=== PATIENT | female | born 1960 ===

== ENCOUNTER 2019-12-13 11:26 | Inpatient (IN) | payer OTHER ==
[~2019-12-13] VITALS: Ht 165.1 cm; Wt 64.7 kg
[~2019-12-13 11:26] MED LIST: GABA400; HYDACE5325 PO; META800 PO; NAPR500 PO; OXYACE5T PO; PANT20 PO; RXOXYACE PO
[2019-12-13 12:45] LABS: BASOPHILS ABSOLUTE AUTO 0.03 K/mm3 (0.00-0.23); BASOPHILS PERCENT AUTO 1 % (0-2); EOSINOPHILS ABSOLUTE AUTO 0.05 K/mm3 (0.00-0.68); EOSINOPHILS PERCENT AUTO 1 % (0-6); Hematocrit 26.3 % (33.0-51.0); Hemoglobin 6.9 g/dL (11.5-16.0); IMMATURE GRAN ABSOLUTE AUTO 0.01 K/mm3 (0.00-0.10); IMMATURE GRAN PERCENT AUTO 0 % (0-1); LYMPHOCYTES ABSOLUTE AUTO 0.73 K/mm3 (0.84-5.20); LYMPHOCYTES PERCENT AUTO 17 % (21-46); MONOCYTES ABSOLUTE AUTO 0.33 K/mm3 (0.16-1.47); MONOCYTES PERCENT AUTO 8 % (4-13); Mean Corpuscular HGB 15.3 pg (26.0-34.0); Mean Corpuscular HGB Conc 26.2 g/dL (31.5-36.5); Mean Corpuscular Volume 58 fL (80-100); Mean Platelet Volume 8.5 fL (9.1-12.4); NEUTROPHILS ABSOLUTE AUTO 3.07 K/mm3 (1.96-9.15); NEUTROPHILS PERCENT AUTO 73 % (41-73); NRBC ABSOLUTE 0.03 K/mm3 (0.00-0.02); NRBC Auto 0.7 /100 WBC (0.0-0.2); Platelet Count 434 K/mm3 (150-400); RDW Coefficient Variation 20.7 % (11.7-14.2); RDW Standard Deviation 41.5 fL (35.1-46.3); White Blood Cell Count 4.22 K/mm3 (4.00-11.30)
[2019-12-13 13:04] LABS: Albumin, Blood 3.7 g/dL (3.4-5.0); Albumin/Globulin Ratio 1.1 (0.8-1.8); Alk Phos 66 U/L (50-136); Anion Gap 8 mmol/L (6-16); Aspartate Aminotrans (AST/SGOT 13 U/L (12-37); Blood Urea Nitrogen 15 mg/dL (8-24); Bun/Creatinine Ratio 18.9 (12.0-20.0); CO2, Blood 22 mmol/L (21-32); Calcium, Blood 8.7 mg/dL (8.5-10.1); Chloride, Blood 110 mmol/L (98-108); Creatinine, Blood 0.79 mg/dL (0.40-1.00); Globulin, Blood 3.3 g/dL (2.2-4.0); Glomerular Filtration Rate >60 (60-); Glucose, Blood 98 mg/dL (70-99); Potassium, Blood 3.5 mmol/L (3.5-5.5); Sodium, Blood 140 mmol/L (136-145)
[2019-12-13 13:07] LABS: Troponin I <0.015 ng/mL (0.000-0.040)
[2019-12-13 13:15] LABS: Bilirubin, Total 0.3 mg/dL (0.1-1.0)
[2019-12-13 13:25] LABS: Alanine Aminotransfer (ALT/SGP 18 U/L (12-78)
[2019-12-13] MEDS ORDERED: TRAZ100 PO (15:55)
[2019-12-13] MEDS ORDERED: LEVSOD75 PO (15:56)
[2019-12-13 16:01] LABS: Hematocrit 24.7 % (33.0-51.0); Hemoglobin 6.4 g/dL (11.5-16.0)
[2019-12-13] MEDS ORDERED: QUET200 PO ×2 (16:02→16:03)
[2019-12-13] MEDS ORDERED: Lovastatin20 MG PO (16:04)
[2019-12-13 16:44] LABS: Thyroid Stimulating Hormone 1.64 uIU/mL (0.360-4.800)
--- NOTE | 2019-12-13 20:30 | NUR ---
PT ARRIVED TO ROOM FROM ER VIA STRETCHER. TXFR TO BED VIA SLIDER SHEET AND ASSIST X4. PT CHEERFUL AND VERY TALKATIVE. TOPICS OF CONVERSATION ALL OVER THE PLACE WITH NO BREAKS IN BETWEEN. FLUID FROM ONE THOUGHT TO THE NEXT. SOME THOUGHTS TRIGGER TEARS, OTHERS TRIGGER LAUGHTER. COOPERATIVE AND PLEASANT. FEARFUL OF DEMONS OR SATAN KEEPING HER FROM USING THE CALL LIGHT, REQUESTS THAT SOMEONE REMAIN WITH HER AT ALL TIMES TO KEEP HER SAFE. ASKS FOR BIBLE TO PLACE ON CHEST TO PROTECT HER HEART FROM SATAN MESSING WITH IT AND PREVENTING US FROM SEEING ANY CHANGES IN RHYTHM OR RATE ON THE MONITOR. PT DENIES ANY PLAN OR IDEAS TO HARM SELF OR OTHERS. VERY THANKFUL TO HAVE US HERE TO WATCH OVER HER. REQUESTS A VARIETY OF SNACKS. CALL LIGHT IN REACH.
[2019-12-13 20:39] LABS: Hematocrit 28.1 % (33.0-51.0); Hemoglobin 7.7 g/dL (11.5-16.0)
--- NOTE | 2019-12-13 22:30 | NUR ---
PT WATCHING TV. PREFERS VOLUME VERY LOUD. FLU SHOT GIVEN. PT RELUCTANLY TOOK MEDS. IS NOW SETTLING DOWN TO SLEEP. APPLIES CHAP STICK TO LIPS AND AROUND EYES. REQUESTED AND PLACED SHOWER CAP OVER HAIR. WARM BLANKET PROVIDED. PT FELL ASLEEP QUICKLY AND WAS NOTED TO HAVE BEEN LAUGHING IN HER SLEEP FOR QUITE SOME TIME, AND TALKING. DID NOT RESPOND WHEN ASKED IF SHE WAS OK. JUST KEPT LAUGHING. LIGHTS ON REQUESTED. DOORS OPEN. TV ON. CALL LIGHT IN REACH. BIBLE REMAINS ACROSS CHEST.
[2019-12-14 02:30] LABS: BASOPHILS ABSOLUTE AUTO 0.04 K/mm3 (0.00-0.23); BASOPHILS PERCENT AUTO 1 % (0-2); EOSINOPHILS ABSOLUTE AUTO 0.06 K/mm3 (0.00-0.68); EOSINOPHILS PERCENT AUTO 2 % (0-6); Hematocrit 29.1 % (33.0-51.0); IMMATURE GRAN PERCENT AUTO 0 % (0-1); LYMPHOCYTES ABSOLUTE AUTO 0.95 K/mm3 (0.84-5.20); LYMPHOCYTES PERCENT AUTO 23 % (21-46); MONOCYTES PERCENT AUTO 10 % (4-13); Mean Corpuscular HGB 16.6 pg (26.0-34.0); Mean Corpuscular HGB Conc 27.5 g/dL (31.5-36.5); Mean Corpuscular Volume 60 fL (80-100); Mean Platelet Volume 8.5 fL (9.1-12.4); NEUTROPHILS ABSOLUTE AUTO 2.68 K/mm3 (1.96-9.15); NEUTROPHILS PERCENT AUTO 65 % (41-73); Platelet Count 390 K/mm3 (150-400); RDW Coefficient Variation 22.3 % (11.7-14.2); RDW Standard Deviation 45.7 fL (35.1-46.3); Red Blood Cell Count 4.83 M/mm3 (3.80-5.20); White Blood Cell Count 4.13 K/mm3 (4.00-11.30)
[2019-12-14 02:49] LABS: Alanine Aminotransfer (ALT/SGP 16 U/L (12-78); Albumin, Blood 3.2 g/dL (3.4-5.0); Alk Phos 58 U/L (50-136); Anion Gap 7 mmol/L (6-16); Aspartate Aminotrans (AST/SGOT 9 U/L (12-37); Bilirubin, Total 0.5 mg/dL (0.1-1.0); Blood Urea Nitrogen 16 mg/dL (8-24); Bun/Creatinine Ratio 23.2 (12.0-20.0); CO2, Blood 23 mmol/L (21-32); Calcium, Blood 8.5 mg/dL (8.5-10.1); Chloride, Blood 112 mmol/L (98-108); Creatinine, Blood 0.69 mg/dL (0.40-1.00); Globulin, Blood 3.2 g/dL (2.2-4.0); Glomerular Filtration Rate >60 (60-); Glucose, Blood 101 mg/dL (70-99); Potassium, Blood 3.3 mmol/L (3.5-5.5); Sodium, Blood 142 mmol/L (136-145); Total Protein, Blood 6.4 g/dL (6.4-8.2)
--- NOTE | 2019-12-14 06:11 | NUR ---
SHIFT SUMMARY NO SIG CHANGES SINCE RECEIVING MEDS AND GOING TO SLEEP. PT SLEPT THROUGH THE NIGHT, SLEPT THROUGH 04 VS. BOTH CONSULT DOCTORS NOTIFIED. PT HAD NO DIET ORDER ON ARRIVAL AND CLEAR LIQ ORDERED FOR THIS AM. PT WAS GIVEN TURKEY SANDWICH, JELLO, ICE CREAM AT 2200. NOTHING TO EAT OR DRINK SINCE. WILL CONTINUE TO MONITOR, DOCUMENT CHANGES AND WILL REPORT TO DAYSHIFT RN. CALL LIGHT IN REACH.
--- NOTE | 2019-12-14 10:28 | NUR ---
AM NOTE... ASSUMED CARE OF PT APROX 0700. PT IS A&Ox4 BUT HAS HX OF SCHIZ AND MENTAL HEALTH ISSUES. PT'S VS STABLE AT THIS TIME. PT DENIES CHEST PAIN/PRESSURE N/V OR SOB. PT DENIES BLACK/TARRY STOOLS. PT IS ANXIOUS AT THIS TIME. L/S CLEAR. BT PRESENT AND HYPOACTIVE. ABD IS SOFT AND NONTENDER TO PALP. CALL LIGHT IN REACH WILL CONTINUE TO MONITOR.
--- NOTE | 2019-12-14 12:48 | NUR ---
Patient is lying in bed and alert. Patient's thoughts are all over the place and helping her stay on topic is like hearding cats but she is very pleasant and does have wonderful things to say. We talk about personal issues, about her spiritual journey and about her and family history. I listen empathically, conduct a life review, reinforce helpful attitudes and practices and provide spiritual guidance, grief support and prayer. Patient responds well and shows evidence of improved hope. I will continue to remain available to patient and family.
[2019-12-14 13:24] LABS: Hematocrit 28.7 % (33.0-51.0); Hemoglobin 7.7 g/dL (11.5-16.0)
--- NOTE | 2019-12-14 19:04 | NUR ---
SHIFT SUMMARY... NO ACUTE NEGATIVE CHANGES NOTED THIS SHIFT. PT'S VS HAVE BEEN STABLE. PT DENIES ANY BLACK/TARRY STOOLS. PT HAS BEEN IND THE ROOM. CALL LIGHT IN REACH WILL CONTINUE TO MONITOR UNTIL REPORT IS GIVEN TO ONCOMING RN.
--- NOTE | 2019-12-15 04:57 | NUR ---
EOS: PATIENT WAS UP AND DOWN THRU THE NOC SHIFT; SHE WAWS VERY PLEASANT AND COOPERATIVE THOUGH SHE WAS CONFUSED AT TIMES, TALKING ABOUT DEMONS BY THE DOOR. I ADJUSTED THE DOORS TO HER SATISFACTION SEVERAL TIMES. SHE HAD NO COMPLAINTS OF PAIN, RECEVD MEDS PER EMAR. SHIFT ASSESSMENTS AND HOURLY ROUNDS WERE COMPLETED. SHE REMAINS VITALLY STABLE AT THIS ITME, THOUGH FUSTRATED BY THE IV PUMP. BED LOW AND LOCKED, CALL BEE WITHIN REACH.
[2019-12-15 08:08] LABS: Hematocrit 26.8 % (33.0-51.0); Hemoglobin 7.1 g/dL (11.5-16.0)
[2019-12-15 13:33] LABS: Hematocrit 27.7 % (33.0-51.0); Hemoglobin 7.3 g/dL (11.5-16.0)
--- NOTE | 2019-12-15 16:56 | NUR ---
History, Chart, Medications and Allergies reviewed before start of procedure. Lungs clear T/O to Auscultation. Patient confirms NPO status and agrees with scheduled surgery. Pre-Op teaching done. Pt verbalizes understanding. Pt very talkative, pleasant. Easily redirected. Dr. Jackson/Gareth here for 2 physician consent for procedure.
--- NOTE | 2019-12-15 17:22 | NUR ---
12/15/19 1722 Elvis Bradford History, Chart, Medications and Allergies reviewed before start of procedure.MONITOR INTACT WITH CONTINUOUS PULSE OXIMETRY AND INTERMITTENT BP.3-LEAD EKG REVIEWED WITH PHYSICIAN PRIOR TO START OF PROCEDURE.O2 VIA N/C INTACT THROUGHOUT SEDATION/PROCEDURE. PATIENT DETERMINED TO BE ASA APPROPRIATE FOR PROPOFOL SEDATION PRIOR TO START OF PROCEDURE BY DR. CAMARGO.
--- NOTE | 2019-12-15 19:34 | NUR ---
PCU DAYSHIFT NOTE PATIENT ALERT AND ORIENTED TO SELF AND LOCATION T/O SHIFT. PATIENT COOPERATIVE WITH CARE. RESP E/U ON ROOM AIR. HEART RATE 70-80'S NSR WITH NO CARDIAC EVENTS. PATIENT LEFT AND ERTURNED FROM EDG - MD CAMARGO TO ROOM TO UPDATE ON FINDINGS. PATIENT VERBALIZED UNDERSTANDING AND PLAN OF CARE. VSS T/O SHIFT. REPORT GIVEN TO NOC SHIFT HIREN ALVARADO WITH 'O' ANTIONE. CALL LIGHT W/I REACH.
--- NOTE | 2019-12-15 19:40 | NUR ---
RECEIVED REPORT FROM HIREN GORDON. ASSUMED CARE OF PT. SITTING UP IN BED EATING DINNER AT THIS TIME, NO S/S ACUTE DISTRESS NOTED. PT TALKATIVE, APPROPRIATE WITH RN. DENIES ANY NEEDS AT THIS TIME. CALL LIGHT AND POSSESSIONS IN REACH, WILL CONTINUE TO MONITOR.
[2019-12-15 20:11] LABS: Hematocrit 30.6 % (33.0-51.0)
--- NOTE | 2019-12-16 01:00 | NUR ---
UPDATE PATIENT WOKE UP VERY AGITATED AND KEPT PULLING AT HER GOWN AND BLANKETS. PATIENT FRUSTRATED BUT UNABLE TO FINISH HER SENTENCES TO EXPLAIN TO STAFF WHAT WAS BOTHERING HER. PATIENT WOULD ALSO YELL THINGS SUCH , "TURN OFF MY LIGHT!" AND THEN WHEN STAFF TURNED OFF THE LIGHT REQUESTED SHE WOULD YELL, "WHO TURNED OFF MY LIGHT, WHY WOULD SOMEONE DO THAT. EVERYTHINGS ALL WRONG." PATIENT THEN SUDDENLY START TO CRY STATING HOW SORRY SHE WAS THAT SHE HAD GOTTEN FRUSTRATED. A FEW MINUTES LATER PATIENT WOULD GET FRUSTARTED AND START YELLING AGAIN. PATIENT EVENTUALLY ABLE TO SETTLE DOWN AND APPEARED TO FALL ASLEEP. WILL CONTINUE TO MONITOR.
[2019-12-16 06:03] LABS: Hemoglobin 7.7 g/dL (11.5-16.0)
--- NOTE | 2019-12-16 07:59 | NUR ---
PT RESTING IN BED COMFORTABLY, IN NO ACUTE DISTRESS. SLEPT T/O NIGHT. WAS MONITORED EVERY 1-2 HOURS WITH NEEDS MET. PT REMAINS ANXIOUS WITH LABILE MOOD AT TIMES, PLEASANT AND COOPERATIVE AT THIS TIME. DENIES ANY NEEDS, CALL LIGHT AND POSSESSIONS IN REACH.
[2019-12-16] MEDS ORDERED: OMEP20ER PO (10:38)
--- NOTE | 2019-12-16 11:51 | NUR ---
PCU DISCHARGE SUMMARY PATIENT ALERT AND ORIENTED TO SELF, LOCATION AND SITUATION. PATIENT VERBALIZED UNDERSTANDING OF DISCHARGE INSTRUCTION. LUNCHROOM OPERATOR DISCUSSED DISCHARGE PLAN WITH FAMILY MEMBERS AND GUARDIANSHIP WITH FAMILY MEMBERS. PATIENTS LEFT UNIT VIA AMBULATION WITH HER COUSIN HOME, WHICH IS ALSO [employer].
== END 2019-12-16 11:13 | disposition home or self-care (01) | DRG 812 ==
LOC: ER 11:26 → PCU 19:33
PROVIDERS: Emergency Medicine; Internal Medicine; ADMIT Internal Medicine
PROC: 30233N1 Transfusion of Nonautologous Red Blood Cells into Peripheral Vein, Percutaneous Approach (ICD-10-PCS; principal; 2019-12-13)
PROC: 0DB68ZX Excision of Stomach, Via Natural or Artificial Opening Endoscopic, Diagnostic (ICD-10-PCS; 2019-12-15)
DX: D62 Acute posthemorrhagic anemia (principal); K22.10 Ulcer of esophagus without bleeding; K25.9 Gastric ulcer, unspecified as acute or chronic, without hemorrhage or perforation; D50.9 Iron deficiency anemia, unspecified; E87.6 Hypokalemia; F20.9 Schizophrenia, unspecified; K44.9 Diaphragmatic hernia without obstruction or gangrene
CPT/HCPCS: 36415; 36430; 80053; 82607; 82728; 82746; 83540; 83550; 83735; 84443; 84484; 85014; 85018; 85025; 86850; 86900; 86901; 86923; 88305; 88342; 90686; 93005; 93010; 99285-25; C9113; J2704; J2916; J7030; J7060; J7120; P9016

== ENCOUNTER 2021-10-21 21:21 | Inpatient (IN) | payer OTHER ==
[~2021-10-21] VITALS: Ht 165.1 cm; Wt 72.6 kg
[~2021-10-21 21:21] MED LIST changes: +LEVSOD75 PO; +Lovastatin20 MG PO; +OMEP20ER PO; +QUET200 PO; +TRAZ100 PO
[2021-10-21 22:19] LABS: BASOPHILS ABSOLUTE AUTO 0.02 K/mm3 (0.00-0.23); BASOPHILS PERCENT AUTO 0 % (0-2); EOSINOPHILS ABSOLUTE AUTO 0.09 K/mm3 (0.00-0.68); EOSINOPHILS PERCENT AUTO 1 % (0-6); IMMATURE GRAN PERCENT AUTO 1 % (0-1); LYMPHOCYTES PERCENT AUTO 4 % (21-46); MONOCYTES PERCENT AUTO 5 % (4-13); NEUTROPHILS ABSOLUTE AUTO 13.52 K/mm3 (1.96-9.15); NEUTROPHILS PERCENT AUTO 89 % (41-73); NRBC ABSOLUTE 0.04 K/mm3 (0.00-0.02); NRBC Auto 0.3 /100 WBC (0.0-0.2); Platelet Count 372 K/mm3 (150-400); White Blood Cell Count 15.13 K/mm3 (4.00-11.30)
[2021-10-21 22:25] LABS: Mean Corpuscular HGB 12.4 pg (26.0-34.0); Mean Corpuscular HGB Conc 22.5 g/dL (31.5-36.5); Mean Corpuscular Volume 55 fL (80-100); RDW Coefficient Variation 24.6 % (11.7-14.2); RDW Standard Deviation 46.7 fL (35.1-46.3); Red Blood Cell Count 2.74 M/mm3 (3.80-5.20)
[2021-10-21 22:27] LABS: Hemoglobin 3.4 g/dL (11.5-16.0)
[2021-10-21 22:28] LABS: Hematocrit 15.1 % (33.0-51.0)
[2021-10-21 22:36] LABS: Alanine Aminotransfer (ALT/SGP 19 U/L (12-78); Albumin/Globulin Ratio 0.8 (0.8-1.8); Alk Phos 66 U/L (50-136); Anion Gap 11 mmol/L (6-16); Aspartate Aminotrans (AST/SGOT 16 U/L (12-37); Bilirubin, Total 0.5 mg/dL (0.1-1.0); Blood Urea Nitrogen 31 mg/dL (8-24); Bun/Creatinine Ratio 22.1 (12.0-20.0); CO2, Blood 21 mmol/L (21-32); Calcium, Blood 8.3 mg/dL (8.5-10.1); Chloride, Blood 112 mmol/L (98-108); Ethanol (Alcohol), Blood, Med <3 mg/dL; Globulin, Blood 3.7 g/dL (2.2-4.0); Glomerular Filtration Rate 38 (60-); Glucose, Blood 107 mg/dL (70-99); Magnesium, Blood 2.1 mg/dL (1.6-2.4); Sodium, Blood 144 mmol/L (136-145); Total Protein, Blood 6.7 g/dL (6.4-8.2)
[2021-10-22 00:43] LABS: International Normalized Ratio 1.13; Prothrombin Time Results 11.8 Sec (9.7-11.5)
[2021-10-22 07:48] LABS: BASOPHILS ABSOLUTE AUTO 0.07 K/mm3 (0.00-0.23); BASOPHILS PERCENT AUTO 1 % (0-2); EOSINOPHILS ABSOLUTE AUTO 0.15 K/mm3 (0.00-0.68); EOSINOPHILS PERCENT AUTO 1 % (0-6); Hemoglobin 7.9 g/dL (11.5-16.0); IMMATURE GRAN ABSOLUTE AUTO 0.05 K/mm3 (0.00-0.10); IMMATURE GRAN PERCENT AUTO 1 % (0-1); LYMPHOCYTES ABSOLUTE AUTO 0.73 K/mm3 (0.84-5.20); LYMPHOCYTES PERCENT AUTO 7 % (21-46); MONOCYTES PERCENT AUTO 5 % (4-13); NEUTROPHILS ABSOLUTE AUTO 9.44 K/mm3 (1.96-9.15); NEUTROPHILS PERCENT AUTO 86 % (41-73); NRBC ABSOLUTE 0.05 K/mm3 (0.00-0.02); NRBC Auto 0.5 /100 WBC (0.0-0.2); Platelet Count 307 K/mm3 (150-400); White Blood Cell Count 11.04 K/mm3 (4.00-11.30)
[2021-10-22 07:50] LABS: Hematocrit 27.4 % (33.0-51.0); Mean Corpuscular HGB 19.1 pg (26.0-34.0); Mean Corpuscular HGB Conc 28.8 g/dL (31.5-36.5); Mean Corpuscular Volume 66 fL (80-100); Red Blood Cell Count 4.13 M/mm3 (3.80-5.20)
[2021-10-22 07:51] LABS: Mean Platelet Volume 9.1 fL (9.1-12.4)
[2021-10-22 08:36] LABS: Albumin, Blood 2.4 g/dL (3.4-5.0); Albumin/Globulin Ratio 0.7 (0.8-1.8); Bilirubin, Total 2.2 mg/dL (0.1-1.0); Bun/Creatinine Ratio 24.2 (12.0-20.0); Calcium, Blood 7.6 mg/dL (8.5-10.1); Creatinine, Blood 1.28 mg/dL (0.40-1.00); Globulin, Blood 3.4 g/dL (2.2-4.0); Percent Saturation 20.5 % (15.0-50.0); Potassium, Blood 4.5 mmol/L (3.5-5.5); Total Protein, Blood 5.8 g/dL (6.4-8.2)
[2021-10-22 08:41] LABS: Hematocrit 26.9 % (33.0-51.0)
[2021-10-22 10:30] LABS: Hemoglobin 7.9 g/dL (11.5-16.0)
[2021-10-22 10:48] LABS: Influenza A, PCR NEGATIVE (NEGATIVE); Influenza B, PCR NEGATIVE (NEGATIVE); Resp Syncytial Virus, PCR NEGATIVE (NEGATIVE); SARS-Cov-2 (COVID-19) PCR, MMC NEGATIVE (NEGATIVE)
[2021-10-22 11:25] LABS: Hematocrit 26.8 % (33.0-51.0)
[2021-10-22 16:34] LABS: Hemoglobin 8.5 g/dL (11.5-16.0)
[2021-10-22 16:35] LABS: Hematocrit 28.1 % (33.0-51.0)
[2021-10-22 17:34] LABS: Source, Urine Clean Catch
[2021-10-22 17:44] LABS: Appearance, Urine Clear (Clear); Bilirubin, Urine Neg (Neg); Blood, Urine Neg (Neg); Color, Urine Yellow (P-Yellow); Glucose Qualitative, Urine Neg (Neg); Ketones, Urine 1+ (Neg); Leukocyte Esterase, Urine Neg (Neg); Nitrite, Urine Neg (Neg); Protein, Urine 2+ (Neg); Urobilinogen, Urine NORM (Normal)
[2021-10-22 17:55] LABS: Bacteria Few /hpf; Red Blood Cells, Urine 0-2 /hpf (0-2); Squamous Epithelial Cells Few /hpf (Few); White Blood Cells, Urine 0-2 /hpf (0-5)
[2021-10-22 17:56] LABS: U Amphetamine Screen DETECTED; U Barbituate Screen Not Detected; U Benzodiazapine Screen Not Detected; U Buprenorphine Screen Not Detected; U Cannabinoids Screen Not Detected; U Cocaine Screen Not Detected; U Methadone Screen Not Detected; U Methamphetamine Screen DETECTED; U Opiates Screen Not Detected; U Oxycodone Screen Not Detected; U Phencyclidine Screen Not Detected; U Propoxyphene Screen Not Detected
[2021-10-23] MEDS ORDERED: GABA800 PO (01:45)
[2021-10-23 02:42] LABS: BASOPHILS ABSOLUTE AUTO 0.05 K/mm3 (0.00-0.23); BASOPHILS PERCENT AUTO 1 % (0-2); EOSINOPHILS ABSOLUTE AUTO 0.29 K/mm3 (0.00-0.68); EOSINOPHILS PERCENT AUTO 4 % (0-6); Hemoglobin 8.2 g/dL (11.5-16.0); IMMATURE GRAN ABSOLUTE AUTO 0.02 K/mm3 (0.00-0.10); IMMATURE GRAN PERCENT AUTO 0 % (0-1); LYMPHOCYTES ABSOLUTE AUTO 1.16 K/mm3 (0.84-5.20); LYMPHOCYTES PERCENT AUTO 17 % (21-46); MONOCYTES ABSOLUTE AUTO 0.68 K/mm3 (0.16-1.47); MONOCYTES PERCENT AUTO 10 % (4-13); NEUTROPHILS ABSOLUTE AUTO 4.67 K/mm3 (1.96-9.15); NEUTROPHILS PERCENT AUTO 68 % (41-73); NRBC ABSOLUTE 0.02 K/mm3 (0.00-0.02); NRBC Auto 0.3 /100 WBC (0.0-0.2); Platelet Count 332 K/mm3 (150-400); White Blood Cell Count 6.87 K/mm3 (4.00-11.30)
[2021-10-23 02:55] LABS: Hematocrit 27.7 % (33.0-51.0); Mean Corpuscular HGB 19.2 pg (26.0-34.0); Mean Corpuscular HGB Conc 29.6 g/dL (31.5-36.5); Mean Corpuscular Volume 65 fL (80-100); Mean Platelet Volume 8.4 fL (9.1-12.4); RDW Standard Deviation 69.1 fL (35.1-46.3); Red Blood Cell Count 4.27 M/mm3 (3.80-5.20)
[2021-10-23 03:29] LABS: Bun/Creatinine Ratio 20.6 (12.0-20.0); Calcium, Blood 7.8 mg/dL (8.5-10.1); Creatinine, Blood 1.07 mg/dL (0.40-1.00); Potassium, Blood 4.1 mmol/L (3.5-5.5)
--- NOTE | 2021-10-23 05:49 | NUR ---
SHIFT SUMMARY PATIENT ADMITTED TO FLOOR AT APPROXIMETLY 2100 AND FOUND TO BE A PLESANT LADY WHO IS A&OX4. FEELS MUCH BETTER AFTER BLOOD HAS BEEN GIVEN AND IS VERY TALKATIVE AND ENERGETIC. UP WITH ONE ASSIST TO BATHROOM AND NO COMPLAINTS OF DIZZINESS AT THIS TIME. VSS. ON RA SATING HIGH 90'S. NO PAIN OR DISTRESS NOTED UPON ASSSESSMENT. PROTONIX DRIP RUNNING PER ORDER AND NO SIGNS OF BLEEDING ANYWHER THIS SHIFT. TOLERATING CLD WITHOUT ISSUE. WILL BE NPO AFTER BREAKFAST FOR POSSIBLE INTERVENTIONS TODAY. VOIDING WELL IN BATHROOM. NO CONCERNS AT THIS TIME. WILL CONTINUE PLAN OF CARE UNTIL REPORT GIVEN TO WIN MARADIAGA.
--- NOTE | 2021-10-23 13:57 | NUR ---
PT TRANSPORTED TO [facility]. AGREES WITH PLANNED PROCEDURE. PT INITIALLY AGITATED WITH STAFF THEN BECAME APOLOGETIC AND COOPERATIVE.
--- NOTE | 2021-10-23 14:20 | NUR ---
10/23/21 1420 KIAH CARCAMO History, Chart, Medications and Allergies reviewed before start of procedure. Patient confirms NPO status and agrees with scheduled surgery. 3-LEAD EKG REVIEWED WITH PHYSICIAN PRIOR TO START OF PROCEDURE. MONITOR INTACT WITH CONTINUOUS PULSE OXIMETRY AND INTERMITTENT BP. PATIENT DETERMINED TO BE ASA APPROPRIATE FOR PROPOFOL SEDATION PRIOR TO START OF PROCEDURE BY DR. OLMEDO. 02 VIA POM.
[2021-10-23 15:27] LABS: Hemoglobin 7.8 g/dL (11.5-16.0)
[2021-10-23 15:29] LABS: Hematocrit 27.3 % (33.0-51.0)
--- NOTE | 2021-10-23 15:32 | NUR ---
PT RETURNS FROM ENDOSCOPY, NO INTERVENTIONS PERFORMED, NO ACTIVE BLEEDING NOTED IN PROCEDURE. PT HAS NO URINE OUTPUT T/O THE DAY PRIOR TO LEAVING TO DAY SURGERY, BLADDER SCAN PERFORED TO REVEAL GREATER THAN 900ML URINE IN BLADDER, SAL INSERTED WHICH IS DRAINING WELL TO GRAVITY. PT REMAINS CONFUSED, YELLS OUT OR LAUGHS WHEN WOKEN. VSS
[2021-10-23 15:35] LABS: Source, Urine Catheter
[2021-10-23 15:41] LABS: Appearance, Urine Clear (Clear); Bilirubin, Urine Neg (Neg); Blood, Urine Neg (Neg); Color, Urine Yellow (P-Yellow); Glucose Qualitative, Urine Neg (Neg); Ketones, Urine Neg (Neg); Leukocyte Esterase, Urine Neg (Neg); Nitrite, Urine Neg (Neg); Protein, Urine 1+ (Neg); Urobilinogen, Urine NORM (Normal)
[2021-10-23 17:43] LABS: Albumin, Blood 2.6 g/dL (3.4-5.0); Albumin/Globulin Ratio 0.8 (0.8-1.8); Bilirubin, Direct 0.2 mg/dL (0.0-0.3); Bilirubin, Indirect 0.4 mg/dL (0.1-0.7); Bilirubin, Total 0.6 mg/dL (0.1-1.0); Globulin, Blood 3.1 g/dL (2.2-4.0); Total Protein, Blood 5.7 g/dL (6.4-8.2)
--- NOTE | 2021-10-23 18:34 | NUR ---
PT HAS BEEN TO DAY SURGERY FOR ENDOSCOPY, THERE WAS NO ACTIVE BLEEDING NOTED DURING SCOPE, NO INTERVENTIONS WERE NEEDED. PT WITH URINARY RETENTION, NOTED TO HAVE GREATER THAN 900ML URINE PER BLADDER SCAN, SAL CATH PLACED WHICH IS DRAINING WELL TO GRAVITY. VSS. NO BM TODAY, NO ACTIVE BLEEDING NOTED, NO NVD. PT SLEPT FOR MOST OF THE SHIFT, WHEN AWAKE PT IS PARANOID.
--- NOTE | 2021-10-23 20:28 | NUR ---
CALLED REGARDING TO GIVE SEROQUEL 200MG WAS GIVEN IN REPORT ABOUT QT PROLONGATION, LAST QTC 513 AISHA CROWLEY OKAYED TO GIVE MEDICATION SCHEDULED.
--- NOTE | 2021-10-23 23:43 | NUR ---
DR. QUINONES CALLED AT 1553 REQUESTING NOW TO [place] [place]. MECHANICAL ENGINEER AWARE.
[2021-10-24 04:26] LABS: BASOPHILS ABSOLUTE AUTO 0.08 K/mm3 (0.00-0.23); BASOPHILS PERCENT AUTO 2 % (0-2); EOSINOPHILS PERCENT AUTO 10 % (0-6); Hemoglobin 8.8 g/dL (11.5-16.0); IMMATURE GRAN ABSOLUTE AUTO 0.01 K/mm3 (0.00-0.10); IMMATURE GRAN PERCENT AUTO 0 % (0-1); LYMPHOCYTES ABSOLUTE AUTO 1.09 K/mm3 (0.84-5.20); LYMPHOCYTES PERCENT AUTO 21 % (21-46); MONOCYTES ABSOLUTE AUTO 0.32 K/mm3 (0.16-1.47); MONOCYTES PERCENT AUTO 6 % (4-13); Mean Platelet Volume 8.7 fL (9.1-12.4); NEUTROPHILS ABSOLUTE AUTO 3.26 K/mm3 (1.96-9.15); NEUTROPHILS PERCENT AUTO 62 % (41-73); Platelet Count 322 K/mm3 (150-400); White Blood Cell Count 5.26 K/mm3 (4.00-11.30)
[2021-10-24 04:30] LABS: Hematocrit 31.1 % (33.0-51.0); Mean Corpuscular HGB 18.9 pg (26.0-34.0); Mean Corpuscular HGB Conc 28.3 g/dL (31.5-36.5); Mean Corpuscular Volume 67 fL (80-100); RDW Coefficient Variation 31.1 % (11.7-14.2); RDW Standard Deviation 72.8 fL (35.1-46.3); Red Blood Cell Count 4.66 M/mm3 (3.80-5.20)
[2021-10-24 05:14] LABS: Anion Gap 8 mmol/L (6-16); Blood Urea Nitrogen 12 mg/dL (8-24); Bun/Creatinine Ratio 14.1 (12.0-20.0); CO2, Blood 22 mmol/L (21-32); Chloride, Blood 113 mmol/L (98-108); Creatinine, Blood 0.85 mg/dL (0.40-1.00); Glomerular Filtration Rate >60 (60-); Glucose, Blood 63 mg/dL (70-99); Potassium, Blood 4.4 mmol/L (3.5-5.5); Sodium, Blood 143 mmol/L (136-145)
--- NOTE | 2021-10-24 05:23 | NUR ---
PATIENT BLOOD PRESSURE THIS AM SBP> 160 PER MD NOTE NO NEPHROTOXIC MEDICATIONS, REFERED TO MEDICAL PHYSICIST, MONITORING BLOOD PRESSURE AT THIS TIME.
--- NOTE | 2021-10-24 10:02 | NUR ---
CARE ASSUMPTION THIS RN ASSUMED CARE AT 0700 FROM STACEY MARADIAGA. PATIENT IS A/OX4. PATIENT IS VERY HAPPY, CALM, AND COOPERATIVE THIS MORNING. PATIENT REPORTS NO CHEST PAIN, PAIN, SHORTNESS OF BREATH, OR NUMBNESS OR TINGLING. MD MESSINA IN TO SEE PATIENT THIS MORNING AND DECIDED TO DO A ONE DAY IRON TRANSFUSION. THE TEST ONE IS GOING, AND THE PATIENT CURRENTLY IS HAVING NO REACTIONS TO IT. THIS RN WILL CONTINUE TO MONITOR. CALL LIGHT WITHIN REACH AND BED IN LOWEST POSTION.
[2021-10-24] MEDS ORDERED: LOSA50 PO (13:37)
[2021-10-24] MEDS ORDERED: PANT40 PO (13:39)
[2021-10-24] MEDS ORDERED: SUCRALFATE PO (13:41)
[2021-10-24] MEDS ORDERED: FERSU300 PO (13:43)
[2021-10-24] MEDS ORDERED: MIRALAX17 GM PO (13:44)
--- NOTE | 2021-10-24 14:53 | NUR ---
REACTION TO IRON TRANSFUSION PATIENT CALLED THIS RN AND STATED THAT SHE HAD A HEADACHE AND ITCHING ARMS AND EYEBALLS. THIS RN STOPPED THE INFUSION AND NOTIFED THE MD THAT THE PATIENT WAS HAVING A REACTION. WILL CONTINUE TO MONITOR AND PROVIDE CARE.
--- NOTE | 2021-10-24 15:41 | NUR ---
DISCHARGE INSTRUCTIONS THIS RN PROVIDED DISCHARGE INSTRUCTIONS TO THE PATIENT AND PROVIDED EDUCATION. PATIENT VERABLIZED UNDERSTANDING. PATIENT IV REMOVED. PATIENT AWAITING RIDE.
--- NOTE | 2021-10-24 16:23 | NUR ---
DISCHARGE PATIENT LEFT PCU AT 1615 VIA WHEELCHAIR TO FRIEND WHO WAS WAITING FOR HER. PATIENT HAD ALL BELONGINGS. PATIENT STATED NO MORE ITCHING OR HEADACHE.
== END 2021-10-24 16:17 | disposition home or self-care (01) | DRG 811 ==
LOC: ER 21:21 → ERHOLD 10-22 02:06 → PCU 10-22 02:06 → ERHOLD 10-22 15:17 → PCU 10-22 18:17
PROVIDERS: Emergency Medicine; Family Medicine; Internal Medicine; Student in an Organized Health Care Education/Training Program; ADMIT Family Medicine
PROC: 0DB98ZX Excision of Duodenum, Via Natural or Artificial Opening Endoscopic, Diagnostic (ICD-10-PCS; 2021-10-23)
PROC: 0DB68ZX Excision of Stomach, Via Natural or Artificial Opening Endoscopic, Diagnostic (ICD-10-PCS; 2021-10-23)
PROC: 0DB38ZX Excision of Lower Esophagus, Via Natural or Artificial Opening Endoscopic, Diagnostic (ICD-10-PCS; 2021-10-23)
PROC: 30233N1 Transfusion of Nonautologous Red Blood Cells into Peripheral Vein, Percutaneous Approach (ICD-10-PCS; principal; 2021-10-23 14:00)
DX: D50.9 Iron deficiency anemia, unspecified (principal); K22.11 Ulcer of esophagus with bleeding; K29.81 Duodenitis with bleeding; N17.9 Acute kidney failure, unspecified; I50.32 Chronic diastolic (congestive) heart failure; Z20.822 Contact with and (suspected) exposure to COVID-19; R56.9 Unspecified convulsions; F20.9 Schizophrenia, unspecified; E78.5 Hyperlipidemia, unspecified; F60.3 Borderline personality disorder; N18.9 Chronic kidney disease, unspecified; I34.0 Nonrheumatic mitral (valve) insufficiency; I27.20 Pulmonary hypertension, unspecified; K44.9 Diaphragmatic hernia without obstruction or gangrene; G89.29 Other chronic pain; Z98.890 Other specified postprocedural states; Z90.49 Acquired absence of other specified parts of digestive tract; Z88.8 Allergy status to other drugs, medicaments and biological substances; Z79.899 Other long term (current) drug therapy
CPT/HCPCS: 0241U; 36415; 36430; 51702; 70450; 71046; 72125; 80048; 80053; 80076; 81001; 82272; 82607; 82728; 82746; 82947; 83540; 83550; 83735; 83880; 84484; 85014; 85018; 85025; 85610; 85730; 86850; 86900; 86901; 86923; 88305; 88342; 93306; 96365; 96366; 96367; 96375; 96376; 99285-25; A9270; C9113; G0480; J1750; J2250; J2704; J2765; J3475; J7030; J7040; J7120; P9016